=== PATIENT | male | born 1950 | race Caucasian/White ===

== ENCOUNTER 2017-10-30 06:53 | Observation (INO) | payer MEDICARE ==
[2017-10-30] VITALS (16 sets, daily range): BP systolic 121–180; BP diastolic 75–93
[~2017-10-30] VITALS: Ht 182.9 cm; Wt 119.8 kg
[~2017-10-30 06:53] MED LIST: CITALOPRAM20 MG PO; DIAZEPAM5 MG PO; DOXAZOSIN 4MG TA4 MG PO; LISINOPRIL/HCTZ1 TAB PO; OMNICEF 300 MG300 MG PO; PREDNISONE20 MG PO; THEOPHYLLINE300 M1 PO; ZITHROMAX Z-PA250 M1 PO
--- OUTSIDE RECORDS SUMMARY | 2017-10-30 11:04 | External Medical Summary Rpt | CCD ---
Author Author KARLENE Address Unknown Phone Purpose Continuity of Care Document - through 2016
--- OUTSIDE RECORDS SUMMARY | 2017-10-30 11:04 | External Medical Summary Rpt ---
Author Author XIMENA Loredo, XIMENA Lored[employer] Organization [employer] Address Unknown Phone Unavailable
--- OUTSIDE RECORDS SUMMARY | 2017-10-30 11:04 | External Medical Summary Rpt | CCD ---
Author Author [employer] Organization [employer] Address Unknown Phone Unavailable Purpose Continuity of Care Document - through 2016
--- OUTSIDE RECORDS SUMMARY | 2017-10-30 11:04 | External Medical Summary Rpt | CCD ---
Author Author , XIMENA BUENO Address Unknown Phone Immunization Name Date Rout CVX Reac Dose Comm Prov Is Faci e tion ent ider Refu lity Give sed n PPV2 02-2 Intr 33 0.5 Hist PD20 No PD20 3 8-20 amus mL oric 256 256 17 cula al r Info rmat ion - Sour ce Unsp ecif ied
[2017-10-30] MEDS ORDERED: METFORMIN1000 MG PO (11:32)
--- NOTE | 2017-10-30 13:03 | RADIOLOGY REPORT PS360 ---
History and Indications: Hypertension, diabetes, shortness of breath and fatigue Procedure: Patient received a 0.4 mg of Lexiscan, resting heart rate was 78 beats per, resting blood pressure 186/112, with Lexiscan maximum heart rate achieved was 102 bpm which is less than 85% of the maximum predicted heart rate and a blood pressure was 174/76. With Lexiscan patient complained of mild chest pressure and shortness of breath Electrocardiogram: Resting electrocardiogram showed sinus rhythm, with Lexiscan there is less than 1.[address] segment depression noted from the baseline EKG. The EKG portion of the Lexiscan Myoview is nondiagnostic. Cardiac stress and resting SPECT images: Cardiac stress and rest SPECT images were obtained using technetium 99 Myoview 10.1 mCi at rest and 30.2 mCi at stress, gated SPECT further analysis of segmental wall motion and calculation of the ejection fraction. Cardiac stress and rest images show decreased tracer activity in the apex and anteroseptal wall which improves on the resting images suggestive of reversible ischemia in that area. The left ventricle is mildly dilated with stress and rest, either derived ejection fraction is 52% with mild anteroseptal wall hypokinesis. Right ventricle is normal size and contractility. Conclusion: 1. The EKG portion of the Lexiscan Myoview is nondiagnostic 2. Scintigraphic evidence of mild reversible ischemia involving the apex and anteroseptal wall, left ventricle is mildly dilated both stress and rest, computer derived ejection fraction is 52% with segmental wall motion abnormality described above, right ventricle is normal size and contractility. 3. Abnormal Lexiscan Myoview study.
[2017-10-30 13:14] LABS: HEMOGLOBIN 13.7 g/dL (14.1-18.0); LYMPH # 0.7 K/mm3 (0.7-4.5); LYMPH % 10.3 % (10-50)
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
[2017-10-30 14:11] LABS: ALLEN'S TEST ACCEPTABLE; ARTERIAL ABE 3.4 MMOL/L (-2.4-+2.3); ARTERIAL PO2 71.4 MMHG (80-100); ARTERIAL TCO2 30.4 MMOL/L (23-27); OXYGEN ROOM AIR
--- NOTE | 2017-10-30 15:26 | HISTORY AND PHYSICAL REPORT ---
Demographics: Admit date: 10/30/17 Chief complaint: dyspnea, chest pain PRIMARY DIAGNOSIS: CHEST PAIN Allergies: Coded Allergies: morphine (10/30/17) History of present illness: History of present illness: 67-year-old white male admitted after hypoxia during stress test. Patient has a history of chronic obstructive pulmonary disease with chronic oxygen use, hypertension and obstructive sleep apnea. He was here for stress test today during which time he dropped his oxygen saturation with difficulty returning to pretesting levels. He was subsequently admitted for further evaluation. Patient does relate some exertional chest discomfort recently with associated increasing shortness of breath and increasing lower extremity edema. Cardiology consulted for evaluation and recommendations. The stress test was read as showing some ischemia in the apex and anteroseptal hoff. He had exercise induced LEFT ventricular dilatation. Overall ejection fraction 52 percent. He additionally reports that his CPAP with supplemental oxygen didn't seem to be working correctly last night. Also, has been out of home medications for several months and just resumed metformin and lisinopril about 2 weeks ago. Past medical history: Family HX Diabetes No CAD No Hypertension Yes Hyperlipidemia No Cancer Yes TB No Immunization HX DT/Tetanus Unknown Flu 2017-18FSN Pneumonia Received In Past TB Test in last year No General Angina: Yes ND: Yes Hypertension? Yes Hyperlipidemia? No CHF? No COPD? Yes Asthma? No Hernia? No CVA? No Seizures? No Diabetes? No UTI? No Stones? No GB Disease: Yes Hepatitis? No Cataracts? No Glaucoma? No MRSA? No TB? No Cancer? Yes Site: SKIN X 2 Past Surgical HX Previous Surgery?Y SKIN CA HIP L ROTATOR CUFF [place] SKIN CANCER ARM Current home meds: Reported Medications LISINOPRIL/HYDROCHLOROTHIAZIDE (Lisinopril-Hctz 10-12.5 MG Tab) 1 TAB PO DAILY Doxazosin Mesylate (Doxazosin 4MG Tablet) 4 MG PO DAILY METFORMIN HCL (Metformin) 1,000 MG PO BID Social Hx: Smoking HX Tobacco No (former smoker) Alcohol Alcohol: No Hx of Drug Use Drug Use? No Patien't marital status is Patient's support system is fair Comment: financial difficulties Review of systems: Constitutional malaise, weakness. Eyes No: no symptoms reported. Ears, Nose, Mouth, Throat dental caries, loose teeth, missing teeth Respiratory cough, orthopnea, shortness of breath, SOB with excertion, SOB at rest. Cardiovascular chest pain, edema, No palpitations Gastrointestinal/Abdominal No no symptoms reported Genitourinary No: no symptoms reported. Musculoskeletal No: no symptoms reported. Skin change in color, dryness. Neurological Yes: weakness. Psychiatric No: no symptoms reported. Exam: Lab data for last 24 hours: Laboratory Tests 10/30/17 1404: ABG pH 7.36, ABG pCO2 (Temp Corrct 51.8 H, ABG pO2 (Temp Correct 71.4 L, ABG HCO3 28.8 H, ABG Total CO2 30.4 H, ABG O2 Sat (Calculated) 94.2, ABG Base Excess 3.4 H, Theodore Test ACCEPTABLE, Blood Gas Comments RIGHT RADIAL 10/30/17 1300: Creatine Kinase 62, CK-MB (CK-2) Rel Index 1.1, CK and CKMB Interp 0.7, Troponin I < 0.02 10/30/17 1300: Sodium 143, Potassium 3.7, Chloride 106, Carbon Dioxide 33 H, BUN 11, Creatinine 1.0, Estimated Creat Clear 123, Estimated GFR (MDRD) 75, Glucose 126 H, Calcium 8.5, B-Natriuretic Peptide 16, Triglycerides 38, Cholesterol 75, LDL Cholesterol 34.4, VLDL Cholesterol 7.6, HDL Cholesterol 33.0 L, WBC 7.0, RBC 4.81, Hgb 13.7 L, Hct 43.4, MCV 90.1, RDW 14.5, Plt Count 341, MPV 6.7 L, Gran % 80.0, Gran # 5.6, Lymphocytes % 10.3, Monocytes % 5.9, Eosinophils % 2.9, Basophils % 0.8, Lymphocytes # 0.7, Monocytes # 0.4, Eosinophils # 0.2, Basophils # 0.1, PUBS MCHC 31.6 L, MCH 28.5 Additional information: Pleasant male, seated up in WC, drowsy but oriented with normal speech content. Heart with RRR, distant. Lungs diffusely diminished. Abdomen obese, soft, NT/ND, BS present. 1+ BLE edema with rubor, 1+ distal pulses. ENt exam significant for extensive dental decay, missing teeth. Neck is supple. Plan: Problem List 1. Angina at rest Assessment/Plan see cardiology recs, left and right heart cath this afternoon and treat depending on results Oxygen support with PAP during sleep 2. Chronic respiratory failure with hypercapnia 3. Hypoxemia 4. Edema 5. COPD (chronic obstructive pulmonary disease) Plan: see above at [id number]
--- NOTE | 2017-10-30 15:27 | RADIOLOGY REPORT PS360 ---
CARDIAC CATHETERIZATION DATE OF CATHETERIZATION:10/30/2017 3:16 PM PROCEDURES: 1. Left heart catheterization 2. Left ventriculogram 3. Selective coronary angiogram INDICATION FOR TEST: 1. Unstable angina Informed consent was obtained prior to the procedure. COMPLICATIONS: None ESTIMATED BLOOD LOSS: Less than 10 ml. TECHNIQUE: One percent lidocaine used to anesthetize the right anterior aspect of the wrist. The right radial artery was accessed via the Seldinger technique. A 6 Polish sheath was placed in the right radial artery. 2.5 mg of verapamil, 800 mcg of nitroglycerin and 5000 U Heparin were given through the arterial sheath. The trap catheter was also used to perform left heart catheterization and left ventriculography. At the end of the procedure the patient was transferred to the post-op holding area in stable condition for arterial sheath removal. ANGIOGRAPHIC RESULTS: 1. The left main artery normal 2. The left anterior descending artery normal 3. The circumflex artery normal 4. The right coronary artery dominant normal 5. The SALAS ventriculogram reveals hyperdynamic 75% 6. The left ventricular end-diastolic pressure 30 to 35 mmHg IMPRESSION: 1. Normal coronary arteries. 2. Hyperdynamic ventricle 3. Severe hypertensive heart disease with severe diastolic dysfunction PLAN: 1. Patient needs negative inotropes such as verapamil or diltiazem combined with beta blockers of clinically appropriate 2. There are control of hypertension 3. Patient requires significant amount of diuresis 4. Ongoing risk factor modification
[2017-10-30 16:40] LABS: URINE BILIRUBIN - DIPSTICK NEGATIVE (NEG); URINE BLOOD 2+ (NEG); URINE SQUAMOUS CELLS OCC #/hpf (OCC)
--- NOTE | 2017-10-30 20:53 | RADIOLOGY REPORT PS360 ---
CHEST(2 VIEWS-NOT PORTABLE) HISTORY: DYSPNEA ORDERING PHYSICIAN: Mamadou Sanchez MD PATIENT AGE: 67 years COMPARISON: 01/30/2013 and 07/21/2011. FINDINGS: The cardiomediastinal silhouette and pulmonary vascularity are within normal limits. There is minimal blunting of the left CP angle. Not significant change from 07/21/2011. No acute bony abnormalities. No lobar consolidation or collapse. There is mild hyperinflation with hyperlucency of the upper lobes IMPRESSION: COPD with chronic blunting of the left CP angle. No change with no acute finding
[2017-10-31 00:20] VITALS: BP 143/88
[2017-10-31 03:58] VITALS: BP 129/74
[2017-10-31 06:29] LABS: HEMOGLOBIN 14.5 g/dL (14.1-18.0); LYMPH # 0.8 K/mm3 (0.7-4.5); LYMPH % 10.6 % (10-50)
[2017-10-31 08:00] VITALS: BP 150/72
--- NOTE | 2017-10-31 08:34 | DISCHARGE SUMMARY STANDARD ---
Demographics Admit date: 10/30/17 Discharge date: 10/31/17 History of present illness History of present illness 67-year-old white male admitted after hypoxia during stress test. Patient has a history of chronic obstructive pulmonary disease with chronic oxygen use, hypertension and obstructive sleep apnea. He was here for stress test today during which time he dropped his oxygen saturation with difficulty returning to pretesting levels. He was subsequently admitted for further evaluation. Patient does relate some exertional chest discomfort recently with associated increasing shortness of breath and increasing lower extremity edema. Cardiology consulted for evaluation and recommendations. The stress test was read as showing some ischemia in the apex and anteroseptal hoff. He had exercise induced LEFT ventricular dilatation. Overall ejection fraction 52 percent. He additionally reports that his CPAP with supplemental oxygen didn't seem to be working correctly last night. Also, has been out of home medications for several months and just resumed metformin and lisinopril about 2 weeks ago. Hospital Course Hospital Course: Patient was admitted as noted above. Rule out for myocardial infarction. Stress test results from the outpatient test ordered yesterday morning were reviewed showing abnormalities on the Myoview portion, nondiagnostic electrocardiogram portion and cardiac consultation recommended LEFT heart catheterization which was performed. This revealed normal coronary arteries but elevated end-diastolic pressure, evidence of fluid overload and evidence of small vessel disease. Diuresis and calcium channel blockade was recommended. Patient was given intravenous Lasix and diuresed 5 L of fluid. This morning he feels much better, has less shortness of air. Was able to tolerate hospital see Pap overnight and felt much less short of air this morning. Exam reveals clear lungs, some basilar scattered rhonchi but otherwise improved. Heart rate regular. Weight loss noted. No edema. Schmidt catheter draining clear yellow urine. Of note this was removed and he was able to produce urine spontaneously. Plan will be to discharge home with daily Lasix, calcium channel blockade, short -term follow up to assess fluid status in our office on Thursday. Discharge diagnoses Problem List 1. Angina at rest 2. Chronic respiratory failure with hypercapnia 3. Hypoxemia 4. Edema 5. COPD (chronic obstructive pulmonary disease) 6. Diastolic congestive heart failure Medications Medications: Discharge meds are as noted. Follow up Follow up in office in: 2 DAYS with: SHALA MASTERSON APRN at 0834
[2017-10-31] MEDS ORDERED: ASPIRIN EC325 MG PO (08:35)
[2017-10-31] MEDS ORDERED: LASIX 40MG. TAB40 MG PO (08:36)
[2017-10-31] MEDS ORDERED: VERAPAMIL HCL180 MG PO (08:37)
[2017-10-31 08:59] VITALS: BP 150/72
--- NOTE | 2017-11-02 20:43 | RADIOLOGY REPORT PS360 ---
PROCEDURE: 2-D M-mode and color Doppler study INDICATIONS FOR THE TEST: Chest pain + COPD+ Heart Murmur Tobacco Smoking Palpitations Fatigue Syncope Edema Hypertension+Diabetes Mellitus+ Rheumatic Fever SOB+ROD+Obesity+Hyperlipidemia+ Family History HD Additional History PATIENT INFORMATION HEIGHT:72 WEIGHT:245 GENDER: Male B/P: 2-D/M-MODE INTERPRETATION: 2-D MEASUREMENTS OBSERVED VALUES IN CMS Right Ventricular Dimension (RVDd) 2.2 Interventricular Septum (Thickness)(IVsd) 0.9 Left Ventricular Internal Dimensions(LVIDd) 5.7 Left Ventricular Posterior Wall (Thickness)(LVPWd) 1.4 Aortic Root 3.6 Aortic Cusp Separation 2.3 Left Atrial Dimensions (LAD) 4.4 2D 1. Left atrium is mildly enlarged, left ventricle is normal size, there is mild concentric left ventricular hypertrophy, visually estimated ejection fraction approximately 50% with no obvious regional wall motion abnormality, endocardial subsequent poorly visualized. 2. The right atrium and right ventricle are normal size and contractility. 3. The aortic valve is minimally thickened and fibrosed. 4. The mitral and tricuspid valve leaflets are minimally thickened. 5. The pulmonic valve is poorly visualized. 6. No significant pericardial effusion noted. DOPPLER INTERROGATION: Doppler interrogation of the aortic, mitral and tricuspid valvular presence of mild mitral and tricuspid regurgitation, tricuspid and jet velocity insufficient for calculation of the right ventricular systolic pressure, grade 1 diastolic dysfunction seen with tissue Doppler evidence of raised left atrial pressure. CONCLUSION: 1. Technically difficult study because of the patient's factor and poor acoustic windows 2. Mildly enlarged left atrium, normal left ventricular size, mild concentric left ventricular hypertrophy, visually estimated ejection fraction 50% with no obvious regional wall motion abnormality, endocardial surface of poorly visualized. Grade 1 diastolic dysfunction seen with tissue Doppler evidence of raised left atrial pressure. 3. Mild mitral and tricuspid regurgitation. 4. No significant pericardial effusion noted.
== END 2017-10-31 09:35 | disposition home or self-care (01) ==
LOC: RAD 06:53 → 2ND 10:58 → RAD 10:58 → 2ND 11:08 → RAD 11-05 07:30
PROVIDERS: Internal Medicine; Internal Medicine Adolescent Medicine
PROC: B2111ZZ Fluoroscopy of Multiple Coronary Arteries using Low Osmolar Contrast (ICD-10-PCS; 2017-10-30)
PROC: B2151ZZ Fluoroscopy of Left Heart using Low Osmolar Contrast (ICD-10-PCS; 2017-10-30)
PROC: 4A023N7 Measurement of Cardiac Sampling and Pressure, Left Heart, Percutaneous Approach (ICD-10-PCS; principal; 2017-10-30 14:00)
DX: J96.12 Chronic respiratory failure with hypercapnia (principal); R07.9 Chest pain, unspecified; I11.9 Hypertensive heart disease without heart failure; R06.00 Dyspnea, unspecified; Z99.81 Dependence on supplemental oxygen; Z87.891 Personal history of nicotine dependence; I50.33 Acute on chronic diastolic (congestive) heart failure
CPT/HCPCS: A9502; C1725; C1769; C1894; G0378; J1644; J2785; Q9967